=== PATIENT | male | born 1990 | race Caucasian/White ===

== ENCOUNTER 2016-10-19 00:55 | Emergency (ER) | payer OTHER ==
[~2016-10-19] VITALS: Ht 170.1 cm; Wt 72.6 kg
[~2016-10-19 00:55] MED LIST: AMOXICILLIN500 MG PO; AVPAK AZITHROM250 M1 PO; BACTRIM DS 8001 TA1 PO; CEPHALEXIN500 M1 PO; CORTISPORIN SUS10 ML OT; DAYPRO600 M1 PO; ERYTHROMYCIN OPH1 GM OPH; FLEXERIL10 MG PO; HYDROCODONE BIT1 T11 PO; IBU-6600 MG PO; MOTRIN800 MG PO; Motrin,Rufen800 MG PO; NAPROSYN500 MG PO; NKHM; NORCO 325 MG-51 TAB PO; NORCO 5-325 TA1 EACH PO; Orphenadrine C100 MG PO; PREDNISONE10 MG PO; ROBAXIN750 MG PO; ULTRAM50 MG PO; VIBRAMYCIN100 MG PO; VICODIN 5/500 505 MG PO
[2016-10-19] MEDS ORDERED: OMNICEF300 MG PO (01:10)
== END 2016-10-19 01:32 | disposition home or self-care (01) ==
LOC: ED 00:55
DX: H66.91 Otitis media, unspecified, right ear (principal)

== ENCOUNTER 2017-05-09 03:31 | Emergency (ER) | payer OTHER ==
[~2017-05-09] VITALS: Ht 170.1 cm; Wt 72.6 kg
[~2017-05-09 03:31] MED LIST changes: +OMNICEF300 MG PO
[2017-05-09] MEDS ORDERED: AMOXICILLIN500 M2 PO (04:21)
[2017-05-09] MEDS ORDERED: Motrin,Rufen800 MG PO (04:22)
== END 2017-05-09 04:49 | disposition home or self-care (01) ==
LOC: ED 03:31
DX: J02.0 Streptococcal pharyngitis (principal); F10.10 Alcohol abuse, uncomplicated; Z79.899 Other long term (current) drug therapy

== ENCOUNTER 2017-06-24 16:28 | Emergency (ER) | payer OTHER ==
[~2017-06-24] VITALS: Ht 170.1 cm; Wt 68.0 kg
[~2017-06-24 16:28] MED LIST changes: +AMOXICILLIN500 M2 PO
[2017-06-24 17:15] LABS: BASO # 0.1 10*3/uL (0.0-0.1); BASO % 0.7 % (0.0-1.0); EOS # 0.2 10*3/uL (0.0-0.4); EOS % 2.5 % (1.0-4.0); HEMATOCRIT 42.7 % (42.0-52.0); LYMPH # 2.1 10*3/uL (1.3-4.4); LYMPH % 30.6 % (27.0-41.0); MEAN CORPUSCULAR HGB 30.5 pg (27.0-31.0); MEAN CORPUSCULAR HGB CONC 35.1 g/dl (33.0-37.0); MEAN PLATELET VOLUME 10.7 fl (9.6-12.3); MONO # 0.7 10*3/uL (0.1-1.0); MONO % 10.4 % (3.0-9.0); NEUT # 3.7 10*3/uL (2.3-7.9); NEUT % 55.4 % (47.0-73.0); PLATELET COUNT AUTOMATED 254 10*3/uL (130-400); RED BLOOD COUNT 4.91 10*6/uL (4.50-5.90); RED CELL DISTRI WIDTH 12.1 % (0-14.5); WHITE BLOOD COUNT 6.7 10*3/uL (4.8-10.8)
[2017-06-24 17:32] LABS: ALBUMIN 4.1 gm/dl (3.1-4.5); ALKALINE PHOSPHATASE 80 U/L (45-117); BUN 13 mg/dl (7-24); CHLORIDE 109 mmol/L (98-107); CREATININE 1.18 mg/dL (0.70-1.30); POTASSIUM 3.6 mmol/L (3.5-5.1); SGOT/AST 27 IU/L (3-35); SGPT/ALT 32 U/L (12-78); SODIUM 142 mmol/L (136-145); TOTAL PROTEIN 7.3 gm/dL (6.4-8.2)
[2017-06-24 17:33] LABS: TROPONIN I < 0.015 ng/ml (<0.045)
== END 2017-06-24 19:16 | disposition home or self-care (01) ==
LOC: ED 16:28
PROVIDERS: Physician Assistant
DX: R63.8 Other symptoms and signs concerning food and fluid intake (principal); R00.2 Palpitations; R51 Headache; R25.1 Tremor, unspecified; R11.2 Nausea with vomiting, unspecified

== ENCOUNTER 2017-08-04 06:43 | Emergency (ER) | payer OTHER ==
[~2017-08-04] VITALS: Ht 172.7 cm; Wt 72.6 kg
== END 2017-08-04 07:09 | disposition home or self-care (01) ==
LOC: ED 06:43
DX: H00.024 Hordeolum internum left upper eyelid (principal)

== ENCOUNTER 2017-08-22 09:22 | Inpatient (IN) | payer OTHER ==
[~2017-08-22] VITALS: Ht 172.7 cm; Wt 77.6 kg
[2017-08-22 09:32] VITALS: BP 160/101
[2017-08-22 09:57] LABS: BASO # 0.1 10*3/uL (0.0-0.1); BASO % 0.7 % (0.0-1.0); EOS % 0.2 % (1.0-4.0); HEMOGLOBIN 15.3 g/dl (14.0-18.0); LYMPH # 1.6 10*3/uL (1.3-4.4); LYMPH % 11.9 % (27.0-41.0); MEAN CELL VOLUME 86.8 fl (80.0-94.0); MEAN CORPUSCULAR HGB 30.2 pg (27.0-31.0); MEAN CORPUSCULAR HGB CONC 34.8 g/dl (33.0-37.0); MEAN PLATELET VOLUME 10.4 fl (9.6-12.3); MONO # 0.9 10*3/uL (0.1-1.0); MONO % 6.6 % (3.0-9.0); NEUT # 10.8 10*3/uL (2.3-7.9); NEUT % 80.2 % (47.0-73.0); PLATELET COUNT AUTOMATED 301 10*3/uL (130-400); RED BLOOD COUNT 5.07 10*6/uL (4.50-5.90); RED CELL DISTRI WIDTH 12.4 % (0-14.5); WHITE BLOOD COUNT 13.4 10*3/uL (4.8-10.8)
[2017-08-22 09:58] LABS: BILIRUBIN NEGATIVE (NEGATIVE); BLOOD NEGATIVE (NEGATIVE); CLARITY CLEAR (CLEAR); COLOR YELLOW (YELLOW); GLUCOSE NEGATIVE (NEGATIVE); KETONE NEGATIVE (NEGATIVE); LEUKO ESTERASE NEGATIVE (NEGATIVE); NITRITE NEGATIVE (NEGATIVE); PH 5.5 (5.0-9.0); SPECIFIC GRAVITY <= 1.005 (1.005-1.030); UROBILINOGEN 0.2 E.U./dl (0.2-1.0)
[2017-08-22 10:07] LABS: URINE AMPHETAMINES < 1000 (1000ng/ml); URINE BARBITURATES < 200 (200ng/ml); URINE BENZODIAZEPINES < 200 (200ng/ml); URINE CANNABINOIDS (THC) < 50 (50ng/ml); URINE COCAINE > 300 (300ng/ml); URINE METHADONE < 300 (300ng/ml); URINE OPIATES < 300 (300ng/ml)
[2017-08-22 10:12] LABS: URINE PHENCYCLIDINE < 25 (25ng/ml)
[2017-08-22 10:13] LABS: ALBUMIN 4.4 gm/dl (3.1-4.5); ALKALINE PHOSPHATASE 90 U/L (45-117); BUN 9 mg/dl (7-24); CHLORIDE 106 mmol/L (98-107); CREATININE 1.03 mg/dL (0.70-1.30); POTASSIUM 3.6 mmol/L (3.5-5.1); SGOT/AST 30 IU/L (3-35); SGPT/ALT 37 U/L (12-78); SODIUM 140 mmol/L (136-145); TOTAL PROTEIN 8.1 gm/dL (6.4-8.2)
[2017-08-22 10:15] LABS: TROPONIN I < 0.015 ng/ml (<0.045)
[2017-08-22 11:00] VITALS: BP 144/87
[2017-08-22 11:05] VITALS: BP 144/87
[2017-08-22 12:00] VITALS: BP 144/87
[2017-08-22 16:00] VITALS: BP 133/71
[2017-08-22 19:58] VITALS: BP 122/60
[2017-08-23] VITALS: BP 133/78
[2017-08-23 04:00] VITALS: BP 128/74
[2017-08-23 08:00] VITALS: BP 132/71
[2017-08-23 12:00] VITALS: BP 136/72
[2017-08-23 16:00] VITALS: BP 116/63; BP 144/91
[2017-08-23 20:00] VITALS: BP 122/74
[2017-08-24] VITALS: BP 119/80
[2017-08-24 08:00] VITALS: BP 115/87
[2017-08-24 12:00] VITALS: BP 102/54
[2017-08-24] MEDS ORDERED: ZOFRAN 4 MG ED2 TAB PO (15:33)
[2017-08-24] MEDS ORDERED: CHLORDIAZEPOXID25 M1 PO (15:33)
[2017-08-24] MEDS ORDERED: ATARAX,VISTARIL50 MG PO (15:33)
[2017-08-24 16:15] VITALS: BP 138/90
== END 2017-08-24 16:32 | disposition home or self-care (01) | DRG 897 ==
LOC: ED 09:22 → EDHOLD 09:46 → 5E 09:46
PROVIDERS: Student in an Organized Health Care Education/Training Program
DX: F10.239 Alcohol dependence with withdrawal, unspecified (principal); F14.10 Cocaine abuse, uncomplicated; D72.829 Elevated white blood cell count, unspecified; R03.0 Elevated blood-pressure reading, without diagnosis of hypertension; F41.9 Anxiety disorder, unspecified; Z82.49 Family history of ischemic heart disease and other diseases of the circulatory system; R00.0 Tachycardia, unspecified

== ENCOUNTER 2019-05-22 05:29 | Emergency (ER) | payer OTHER ==
[~2019-05-22] VITALS: Ht 172.7 cm; Wt 77.1 kg
[~2019-05-22 05:29] MED LIST changes: +ATARAX,VISTARIL50 MG PO; +CHLORDIAZEPOXID25 M1 PO; +ZOFRAN 4 MG ED2 TAB PO
[2019-05-22] MEDS ORDERED: AUGMENTIN 875875 MG PO (06:02)
[2019-05-22] MEDS ORDERED: NAPROSYN EC375 MG PO (06:02)
== END 2019-05-22 06:31 | disposition home or self-care (01) ==
LOC: ED 05:29
DX: H66.91 Otitis media, unspecified, right ear (principal); R05 Cough

== ENCOUNTER 2019-07-30 11:00 | Emergency (ER) | payer OTHER ==
[~2019-07-30] VITALS: Ht 170.1 cm; Wt 77.1 kg
[~2019-07-30 11:00] MED LIST changes: +AUGMENTIN 875875 MG PO; +NAPROSYN EC375 MG PO
[2019-07-30] MEDS ORDERED: CEPHALEXIN500 M1 PO (11:28)
== END 2019-07-30 13:02 | disposition home or self-care (01) ==
LOC: ED 11:00
DX: S61.012A Laceration without foreign body of left thumb without damage to nail, initial encounter (principal); F17.200 Nicotine dependence, unspecified, uncomplicated; Z79.2 Long term (current) use of antibiotics; Z79.899 Other long term (current) drug therapy; W10.9XXA Fall (on) (from) unspecified stairs and steps, initial encounter; W26.8XXA Contact with other sharp object(s), not elsewhere classified, initial encounter; Y93.89 Activity, other specified; Y92.098 Other place in other non-institutional residence as the place of occurrence of the external cause; Y99.8 Other external cause status

== ENCOUNTER 2020-02-08 21:28 | Emergency (ER) | payer OTHER ==
[~2020-02-08] VITALS: Ht 170.1 cm; Wt 77.1 kg
[2020-02-08] MEDS ORDERED: ZYRTEC10 M2 PO (22:02)
== END 2020-02-08 22:14 | disposition home or self-care (01) ==
LOC: ED 21:28
DX: B34.9 Viral infection, unspecified (principal)

== ENCOUNTER 2020-04-09 17:14 | Emergency (ER) | payer OTHER ==
[~2020-04-09] VITALS: Ht 170.1 cm; Wt 72.6 kg
[~2020-04-09 17:14] MED LIST changes: +ZYRTEC10 M2 PO
[2020-04-09] MEDS ORDERED: MEDROL DOSEPAK4 MG PO (19:09)
[2020-04-09] MEDS ORDERED: ZITHROMAX250 MG PO (19:09)
== END 2020-04-09 19:15 | disposition home or self-care (01) ==
LOC: ED 17:14
DX: J40 Bronchitis, not specified as acute or chronic (principal); F17.200 Nicotine dependence, unspecified, uncomplicated; Z79.899 Other long term (current) drug therapy

== ENCOUNTER 2020-12-26 19:00 | Emergency (ER) | payer OTHER ==
[~2020-12-26 19:00] MED LIST changes: +MEDROL DOSEPAK4 MG PO; +ZITHROMAX250 MG PO
== END 2020-12-26 20:54 | disposition left against medical advice (07) ==
LOC: ED 19:00
DX: M25.569 Pain in unspecified knee (principal); Z53.21 Procedure and treatment not carried out due to patient leaving prior to being seen by health care provider

== ENCOUNTER 2021-01-01 12:06 | Emergency (ER) | payer OTHER ==
[~2021-01-01] VITALS: Wt 81.6 kg
== END 2021-01-01 12:53 | disposition home or self-care (01) ==
LOC: ED 12:06
DX: S80.02XA Contusion of left knee, initial encounter (principal); I87.1 Compression of vein; F17.200 Nicotine dependence, unspecified, uncomplicated; Z79.2 Long term (current) use of antibiotics; Z79.899 Other long term (current) drug therapy; Z98.890 Other specified postprocedural states; W17.81XA Fall down embankment (hill), initial encounter; Y93.89 Activity, other specified; Y92.89 Other specified places as the place of occurrence of the external cause; Y99.8 Other external cause status

== ENCOUNTER 2021-06-23 12:45 | Emergency (ER) | payer OTHER ==
[~2021-06-23] VITALS: Ht 170.1 cm; Wt 81.6 kg
[2021-06-23] MEDS ORDERED: PREDNISONE20 M1 PO (19:46)
[2021-06-23] MEDS ORDERED: PROVENTIL HFA6.7 GM INH (19:46)
== END 2021-06-23 22:01 | disposition home or self-care (01) ==
LOC: ED 12:45
DX: R05.9 Cough, unspecified (principal); Z20.822 Contact with and (suspected) exposure to COVID-19; R09.81 Nasal congestion

== ENCOUNTER 2021-06-30 20:58 | Emergency (ER) | payer OTHER ==
[~2021-06-30] VITALS: Ht 175.2 cm; Wt 70.3 kg
[~2021-06-30 20:58] MED LIST changes: +PREDNISONE20 M1 PO; +PROVENTIL HFA6.7 GM INH
== END 2021-06-30 22:00 | disposition left against medical advice (07) ==
LOC: ED 20:58
DX: R55 Syncope and collapse (principal); F12.90 Cannabis use, unspecified, uncomplicated; F14.90 Cocaine use, unspecified, uncomplicated

== ENCOUNTER 2022-02-21 01:28 | Emergency (ER) | payer OTHER ==
[~2022-02-21] VITALS: Ht 170.1 cm; Wt 72.6 kg
== END 2022-02-21 15:29 | disposition home or self-care (01) ==
LOC: ED 01:28
DX: S66.922A Laceration of unspecified muscle, fascia and tendon at wrist and hand level, left hand, initial encounter (principal); X58.XXXA Exposure to other specified factors, initial encounter; Y93.89 Activity, other specified; Y92.89 Other specified places as the place of occurrence of the external cause; Y99.8 Other external cause status

== ENCOUNTER → 2022-03-03 | Day surgery (SDC) | payer OTHER ==
[~2022-03-03] VITALS: Ht 170.1 cm; Wt 81.6 kg
[2022-03-03 08:15] VITALS: BP 156/90
[2022-03-03 12:35] VITALS: BP 114/69
[2022-03-03 12:50] VITALS: BP 110/62
[2022-03-03 13:01] VITALS: BP 133/75
== END | disposition home or self-care (01) ==
LOC: SDC 02-27 12:30
PROVIDERS: ATTEND Orthopaedic Surgery
DX: S66.52 Laceration of intrinsic muscle, fascia and tendon of other and unspecified finger at wrist and hand level (principal); W22.8XXA Striking against or struck by other objects, initial encounter; Y93.89 Activity, other specified; Y92.69 Other specified industrial and construction area as the place of occurrence of the external cause; Y99.0 Civilian activity done for income or pay

== ENCOUNTER 2022-07-22 15:20 | Emergency (ER) | payer OTHER ==
[~2022-07-22] VITALS: Wt 81.6 kg
== END 2022-07-22 17:41 | disposition home or self-care (01) ==
LOC: ED 15:20
DX: S81.812A Laceration without foreign body, left lower leg, initial encounter (principal); W29.3XXA Contact with powered garden and outdoor hand tools and machinery, initial encounter; Y93.89 Activity, other specified; Y92.89 Other specified places as the place of occurrence of the external cause; Y99.8 Other external cause status

== ENCOUNTER → 2022-08-06 | Outpatient (CLI) | payer OTHER | END | disposition home or self-care (01) | LOC: WOUNDCARE 00:53 | PROVIDERS: ATTEND Nurse Practitioner Family | DX: T81.31XA Disruption of external operation (surgical) wound, not elsewhere classified, initial encounter (principal); S81.812A Laceration without foreign body, left lower leg, initial encounter; Z48.02 Encounter for removal of sutures; X58.XXXA Exposure to other specified factors, initial encounter; Y93.89 Activity, other specified; Y92.89 Other specified places as the place of occurrence of the external cause; Y99.8 Other external cause status; Y92.238 Other place in hospital as the place of occurrence of the external cause; Y83.8 Other surgical procedures as the cause of abnormal reaction of the patient, or of later complication, without mention of misadventure at the time of the procedure ==

== ENCOUNTER 2023-03-30 20:57 | Emergency (ER) | payer OTHER ==
[~2023-03-30] VITALS: Ht 170.1 cm; Wt 77.1 kg
== END 2023-03-31 01:19 | disposition home or self-care (01) ==
LOC: ED 20:57
DX: R07.81 Pleurodynia (principal); Z98.890 Other specified postprocedural states; F14.90 Cocaine use, unspecified, uncomplicated; F12.90 Cannabis use, unspecified, uncomplicated; F17.290 Nicotine dependence, other tobacco product, uncomplicated

== ENCOUNTER 2023-08-19 10:56 | Emergency (ER) | payer OTHER ==
[~2023-08-19] VITALS: Ht 170.1 cm; Wt 81.6 kg
[2023-08-19] MEDS ORDERED: Acetaminophen/Hydrocodone 5 MG/325 MG TABLET PO ONE (11:30)
[2023-08-19] MEDS ORDERED: Motrin,Rufen800 MG PO (12:32)
== END 2023-08-19 12:36 | disposition home or self-care (01) ==
LOC: ED 10:56
DX: S63.502A Unspecified sprain of left wrist, initial encounter (principal); R60.0 Localized edema; Z98.890 Other specified postprocedural states; W10.8XXA Fall (on) (from) other stairs and steps, initial encounter; Y93.89 Activity, other specified; Y92.89 Other specified places as the place of occurrence of the external cause; Y99.8 Other external cause status

== ENCOUNTER 2025-03-14 16:10 | Emergency (ER) | payer OTHER, BC ==
[~2025-03-14] VITALS: Ht 170.1 cm; Wt 79.4 kg
[2025-03-14] MEDS ORDERED: Tdap Vaccine 0.5 ML SYR (Adult Vaccine) IM ONE (19:40)
[2025-03-14] MEDS ORDERED: Acetaminophen/Hydrocodone 5 MG/325 MG TABLET PO ONE (19:40)
[2025-03-14] MEDS ORDERED: Ondansetron Hydrochloride 4 MG TAB SL ONE (19:40)
[2025-03-14] MEDS ORDERED: Sulfamethoxazole/Trimethopri 1 TAB TAB PO ONE (21:10)
[2025-03-14] MEDS ORDERED: SEPTDS PO (21:23)
[2025-03-14] MEDS ORDERED: Gelatin Sponge 1 EACH SPON T ONE (21:25)
[2025-03-14] MEDS ORDERED: Bacitracin Zinc 14 GM TUBE T ONE (21:25)
== END 2025-03-14 21:30 | disposition home or self-care (01) ==
LOC: ED 16:10
DX: S61.102A Unspecified open wound of left thumb with damage to nail, initial encounter (principal); Z79.899 Other long term (current) drug therapy; Z98.890 Other specified postprocedural states; W26.8XXA Contact with other sharp object(s), not elsewhere classified, initial encounter; Y93.89 Activity, other specified; Y92.89 Other specified places as the place of occurrence of the external cause; Y99.0 Civilian activity done for income or pay